=== PATIENT | male | born 1960 | race Hispanic/Latino ===

== ENCOUNTER → 2024-07-24 | Outpatient (REF) | payer OTHER ==
[~2024-07-24] MED LIST: IOPAMIDOL 370 MG/ML 100 ML INFUS..BTL INJ ONE; METOPROLOL TARTRATE INJ 1 MG/ML VIAL ONE; NITROGLYCERIN 0.4 MG SUBL ONE; SODIUM CHLORIDE 0.9% 100 ML ONE
[2024-07-24 11:48] LABS: CREATININE, SERUM 0.85 mg/dL (0.72-1.25)
== END ==
LOC: CT 10:18
PROVIDERS: ATTEND Internal Medicine Cardiovascular Disease
DX: I20.9 Angina pectoris, unspecified (principal)
CPT/HCPCS: 36415; 75574; 75580; 82565; 84520; J7050; Q9967